=== PATIENT | female | born 1970 | race Caucasian/White ===

== ENCOUNTER 2018-05-23 19:18 | Emergency (ER) | payer SELFPAY ==
[2018-05-23 19:19] VITALS: BP 141/84; PULSE 91; RESP 18; TEMP 36.6; O2SAT 97; BMI 29.1
[2018-05-23 20:14] VITALS: BP 135/76; PULSE 73; RESP 16; O2SAT 99
[2018-05-23] MEDS: Aspirin 81 MG TAB.CHEW 324 MG PO (20:26)
[2018-05-23] MEDS: 0.9% Normal Saline 1,000 ML 1000 ML IV (20:26)
[2018-05-23 20:33] LABS: Absolute Lymphocyte Count 2.94 X10^3/ul (0.83-4.51); Absolute Neutrophil Count 5.1 X10^3/uL (2.0-7.7); Basophil# 0.04 X10^3/uL; Basophil% 0.4 % (0-1); Eosinophil# 0.11 X10^3/uL; Eosinophils% 1.2 % (0-5); Hematocrit 41.3 % (37-47); Hemoglobin 13.2 g/dl (12.0-15.0); Lymphocyte # 2.94 X10^3/ul (4.0); Lymphocyte % 32.7 % (19-41); Mean Corpuscular Hgb 29.2 pg (27.0-32.0); Mean Corpuscular Volume 91.4 fL (81-99); Mean Platelet Vol. 10.6 fl (6.2-12.0); Monocyte# 0.75 X10^3/uL; Monocyte% 8.4 % (0-10); Neutrophil # 5.13 X10^3/uL (2.7-7.7); Neutrophil % 57.2 % (47-70); Platelet Count 258 K/mm3 (150-450); RBC Distribution Width CV 13.2 % (11.6-14.6); RBC Distribution Width SD 43.8 fl (35.1-43.9); Red Blood Count 4.52 M/mm3 (4.2-5.4)
[2018-05-23 20:34] LABS: POSITIVE COUNT NO; POSITIVE DIFFERENTIAL NO; POSITIVE MORPHOLOGY NO
[2018-05-23 20:44] LABS: D-Dimer Quantitative (DVT/PE) < 0.27 FEU/ug/m (0.27-0.49)
[2018-05-23 20:51] LABS: Anion Gap 5 (5-15); BUN 14 mg/dL (7-18); BUN/Creat Ratio 16.4 RATIO (10-20); Calcium,Total 8.6 mg/dL (8.5-10.1); Chloride 104 mmol/L (98-107); Creatinine, Serum 0.85 mg/dL (0.55-1.02); EST Glomerular Filtration Rate 76 mL/min (>60); Est Glom Filt Rate - Afr Amer 92 mL/min (>60); Estimated Creatinine Clearance 90.47 ml/min; Glucose 115 mg/dL (74-106); Potassium 3.7 mmol/L (3.5-5.1); Sodium Level 139 mmol/L (136-145)
--- NOTE | 2018-05-23 21:52 | ED.VISSUMM ---
- ER Visit Summary Date of Service: 05/23/18 Chief Complaint: Chest pain History of Present Illness: The patient is a 48 F with no primary care physician. She reports that she has chest pain that began 3 months ago. It is a constant pain that has gradually worsened. She notes that the pain worsens when she eats. She also reports that she has chest tightness when she does her chores in the morning. She reports pain is 7 out of 10 at worst and 4-10 currently. She is short of breath with exertion. She has been nauseated at times. No vomiting. Physical Examination: Vitals: Stable. Afebrile. General: Well-nourished and well-developed. Head: Normocephalic atraumatic. Neck: Supple, no lymphadenopathy. No JVD. Nontender. Cardiovascular: Regular rate and rhythm. No murmurs. Respiratory: No respiratory distress. Clear to auscultation bilaterally. Abdominal: Soft, nontender, nondistended, normal bowel sounds. No guarding, rebound, or peritoneal signs. Back: Nontender. Extremities: Nontender, no edema. Skin: Normal color, no rash. Neurologic: Alert and oriented ?3. Cranial nerves II through XII are intact. Normal strength and sensation. Psych: Normal affect. Test Results: EKG is sinus at [address] changes. There is no old EKG for comparison. Troponin is negative. D-dimer is negative. Chem-7 is more for glucose 115. CBC is normal. Chest x-ray is normal. Emergency Department Course and Treatment: Patient is resting comfortably and refused pain medications. Treatment Plan: Had a prolonged discussion with the patient about the etiology of her chest pain. We discussed the fact that constant chest pain for 3 months is unlikely to be cardiac in etiology. Worsening with eating is also unlikely to be cardiac in etiology. We did discuss the possibility of esophagitis. However, I also discussed with her that this should not cause her to have worsening chest pain and shortness of breath with exertion. I have offered her admission to the hospital for a stress test. She is self-pay and does not want to stay in the hospital. She reports that she has had this for 3 months and feels comfortable with an outpatient evaluation. She is instructed to follow-up with Dr. Grzegorz Lopez III as soon as possible for further evaluation and treatment. Return to the emergency department for any worsening symptoms. Disposition: To home in improved and stable condition. Impression: 1. Atypical chest pain. 2. NADIA score of 0. This note was generated with [employer] dictation software. It may contain incorrect words, spelling, and punctuation that were not noted in review of the chart prior to signing ED Disposition - Plan for ED Patient: Disposition: Home or Assisted Living Chief Complaint: Shortness of Breath Instructions: ED Chest Pain Atypical Unkn Cause Referrals: Grzegorz Lopez III, MD [STAFF PHYSICIAN] - As soon as possible
[2018-05-23 22:18] VITALS: BP 130/82; PULSE 88; RESP 15; O2SAT 97
--- NOTE | 2018-05-24 12:12 | CM.ED ---
ED CALLBACK: Follow-up call placed to patient. Patient states, I think I should be feeling better than I am. She states she has pressure in the back of her head and has fuzzy brain. Patient states, I probably should have stayed in the hospital last night. She tells me that she was told, last night, that she absolutely needs a stress test and that it could take weeks to get one if she didn't stay in the hospital. Patient states her chest still feels tight, but she notes she did feel better when they put oxygen on me last night. Patient denies having a PCP and states she usually takes care of herself. 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 She states she's supposed to have her grandson tonight and her plans will depend on this. I strongly encouraged the patient to come back to the ED, immediately, for further workup. Patient states understanding.
== END 2018-05-23 22:20 | disposition home or self-care (01) ==
LOC: ED 20:31
PROVIDERS: Emergency Provider Emergency Medicine
DX: R07.89 Other chest pain (principal); Z82.49 Family history of ischemic heart disease and other diseases of the circulatory system
CPT/HCPCS: 71045; 80048; 84484; 85025; 85379; 93005; 99285; J7030; A4216